=== PATIENT | male | born 1950 | race Two or more races ===

== ENCOUNTER 2017-12-23 15:02 | Emergency (ER) | payer MEDICAID ==
[~2017-12-23] VITALS: Ht 180.3 cm; Wt 68.0 kg
[2017-12-23 15:10] VITALS: BP 122/78
--- NOTE | 2017-12-23 15:31 | Emergency Room Report ---
History of Present Illness General Chief Complaint: Male Urogenital Problems Source: EMS Present Illness HPI 67-year-old male patient presents ER complaining of hematuria and dysuria 1 week. Patient denies passage of clots. Patient denies recent sexual activity. Denies flank or abdominal pain. Denies fever, chest pain, shortness of breath , abdominal pain, diarrhea. Denies testicular pain or swelling. Denies rash or lesions on penis. Denies recent trauma or injury. Denies other acute symptoms. reports history of prostate problems, denies taking medication for prostate problems, does not remember medication previous taken. Denies constipation. Allergies: Coded Allergies: No Known Allergies (Unverified , 12/23/17) Patient History Past Medical History: see triage record Reviewed Nursing Documentation: PMH: Agreed; PSxH: Agreed Nursing Documentation-PMH Past Medical History: No Stated History Review of Systems All Other Systems: negative except mentioned in HPI Physical Exam Vital Signs Date Time Temp Pulse Resp B/P (MAP) Pulse Ox O2 Delivery O2 Flow Rate FiO2 12/23/17 14:59 98.2 78 18 122/78 100 Room Air 98.2 Sp02 EP Interpretation: reviewed, normal General Appearance: well appearing, no apparent distress, alert, GCS 15, non- toxic Head: normocephalic, atraumatic Eyes: bilateral eye normal inspection, bilateral eye PERRL ENT: hearing grossly normal, normal pharynx, no angioedema, normal voice, uvula midline, moist mucus membranes Neck: full range of motion Respiratory: lungs clear, normal breath sounds, no rhonchi, no respiratory distress, no accessory muscle use, no wheezing, speaking full sentences Cardiovascular #1: regular rate, rhythm, no edema Gastrointestinal: non tender, soft, no mass, non-distended, no guarding, no rebound Genitourinary: no CVA tenderness, penis normal - uncircumcised, scrotum normal , other - crusting on glans penis with foreskin retracted, no erythema or edema , TTP, no lesions or vesicles Musculoskeletal: back normal, digits/nails normal, gait/station normal, normal range of motion, non-tender Neurologic: alert, oriented x3, responsive, motor strength/tone normal, sensory intact Psychiatric: mood/affect normal Skin: no rash Lymphatic: no adenopathy Medical Decision Making PA Attestation Dr. Pires is my supervising Physician whom patient management has been discussed with. Diagnostic Impression: Primary Impression: Hematuria Additional Impressions: Urinary tract infection Bladder diverticulum Impaired renal function ER Course Pt presents to ED c/o hematuria and dysuria. DDX considered but are not limited to cystitis, pyelonephritis, STI, renal artery aneurysm, mass, kidney stones, BPH, retention. 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 patient complains of painful hematuria, will order CT abdomen with labs. Cap refill < 2seconds, no circumoral pallor. VITAL SIGNS are WNL, patient is afebrile. ER COURSE Provided patient with IV fluids. CBC unremarkable, mild anemia noted, does not require blood transfusion at this time. CMP shows decreased eGFR, likely impaired renal function, f/u with PCP for further treatment and referral. UA results show positive nitrites and bacteria, indicate UTI, will treat with abx and discharge home with abx prescription. Provided with Rocephin in the ER. Will discharge home with Keflex. If concern for STI, followup with STI clinic for testing and treatment. Denies STI concern. advised patient to keep portion clean, wash thoroughly daily. CT abdomen pelvis shows distended urinary bladder, bladder diverticulum, atherosclerotic vascular disease, degenerative facet arthropathy and lumbar spine, hyperdensities in liver. Discuss results with the patient. Provided patient with copy of results. Instructed patient to followup with PCP and discuss results of report with patient, discuss need for further treatment and referral. Consult with TORRES Samaniego for close outpatient followup with PCP. Followup with PCP and discuss referral to urology specialist for further imaging and treatment. Provided with contact information for urology specialist. Patient blood pressure not elevated, advised patient to discuss prostate evaluation and medication at followup, will not begin patient on prostate medication at this time. Patient is resting comfortably in bed, nontoxic appearing, in no acute distress. Advised on Tylenol for pain symptoms. ER precautions given. DISCHARGE -Rx provided for Tylenol -Rx provided for Keflex Patient is stable for discharge. Patient resting comfortably, in no acute distress, nontoxic appearing, talking without difficulty. Will provide with patient care instructions and any necessary prescriptions. Patient understands and agrees to treatment plan. Patient encouraged to drink plenty of fluids. Patient to take medication as instructed. Care plan and follow-up instructions provided. Patient questions asked and answered. Reports understanding and agreement to treatment plan. Patient instructed to follow-up with primary care provider in 3 - 5 days. ER precautions given. Patient instructed to return to ER immediately for any new or worsening of symptoms. Including but not limited to fever, abdominal pain , intractable vomiting. - Please note that this Emergency Department Report was dictated using [employer] engineer technology software, occasionally this can lead to erroneous entry secondary to interpretation by the dictation equipment. Labs Test 12/23/17 16:12 12/23/17 16:53 White Blood Count 5.7 K/UL (4.8-10.8) Red Blood Count 4.24 M/UL (4.70-6.10) Hemoglobin 12.8 G/DL (14.2-18.0) Hematocrit 37.5 % (42.0-52.0) Mean Corpuscular Volume 88 FL (80-99) Mean Corpuscular Hemoglobin 30.1 PG (27.0-31.0) Mean Corpuscular Hemoglobin Concent 34.1 G/DL (32.0-36.0) Red Cell Distribution Width 13.1 % (11.6-14.8) Platelet Count 245 K/UL (150-450) Mean Platelet Volume 5.2 FL (6.5-10.1) Neutrophils (%) (Auto) 70.9 % (45.0-75.0) Lymphocytes (%) (Auto) 19.3 % (20.0-45.0) Monocytes (%) (Auto) 6.5 % (1.0-10.0) Eosinophils (%) (Auto) 2.3 % (0.0-3.0) Basophils (%) (Auto) 0.9 % (0.0-2.0) Sodium Level 147 MMOL/L (136-145) Potassium Level 3.8 MMOL/L (3.5-5.1) Chloride Level 110 MMOL/L (98-107) Carbon Dioxide Level 32 MMOL/L (21-32) Anion Gap 5 mmol/L (5-15) Blood Urea Nitrogen 19 mg/dL (7-18) Creatinine 1.3 MG/DL (0.55-1.30) Estimat Glomerular Filtration Rate 55.2 mL/min (>60) Glucose Level 91 MG/DL (74-106) Calcium Level 8.4 MG/DL (8.5-10.1) Total Bilirubin 0.2 MG/DL (0.2-1.0) Aspartate Amino Transf (AST/SGOT) 21 U/L (15-37) Alanine Aminotransferase (ALT/SGPT) 29 U/L (12-78) Alkaline Phosphatase 59 U/L (46-116) Total Protein 6.2 G/DL (6.4-8.2) Albumin 2.9 G/DL (3.4-5.0) Globulin 3.3 g/dL Albumin/Globulin Ratio 0.9 (1.0-2.7) Lipase 159 U/L (73-393) Urine Color Red Urine Appearance Cloudy Urine pH 8 (4.5-8.0) Urine Specific [place] 1.010 (1.005-1.035) Urine Protein 3+ (NEGATIVE) Urine Glucose (UA) Negative (NEGATIVE) Urine Ketones Negative (NEGATIVE) Urine Blood 5+ (NEGATIVE) Urine Nitrite Positive (NEGATIVE) Urine Bilirubin Negative (NEGATIVE) Urine Urobilinogen Normal MG/DL (0.0-1.0) Urine Leukocyte Esterase 2+ (NEGATIVE) Urine RBC Tntc /HPF (0 - 0) Urine WBC 5-10 /HPF (0 - 0) Urine Squamous Epithelial Cells None /LPF (NONE/OCC) Urine Bacteria Many /HPF (NONE) CT/MRI/US Diagnostic Results CT/MRI/US Diagnostic Results : Imaging Test Ordered: CT abdomen pelvis Impression No nephrolithiasis or obstructive nephropathy. Poor visualization of the ureters due to lack of abdominal fat. Suggestion of a 2.3 x 1.2 cm cyst in the left kidney. Suggestion of a 1 cm hyperdense cyst in the left kidney. Distended urinary bladder. Consider Welch catheter. Prominent posterior bladder diverticulum. Mild atherosclerotic vascular disease Hypodensities in the liver nonspecific. These may be cystic. Mild degenerative facet arthropathy lower lumbar spine. Last Vital Signs Date Time Temp Pulse Resp B/P (MAP) Pulse Ox O2 Delivery O2 Flow Rate FiO2 12/23/17 14:59 98.2 78 18 122/78 100 Room Air 98.2 Disposition: HOME, SELF-CARE Condition: Stable Scripts Acetaminophen* (TYLENOL EXTRA STRENGTH*) 500 Mg Tablet 500 MG ORAL Q8H PRN for Prn Headache/Temp > 101, #30 TAB 0 Refills Prov: Jamey Sampson 12/23/17 Cephalexin* (KEFLEX*) 500 Mg Capsule 500 MG ORAL EVERY 12 HOURS, #14 CAP 0 Refills Prov: Jamey Sampson 12/23/17 Patient Instructions: Acute Kidney Injury, Hematuria, Adult, Urinary Tract Infection Additional Instructions: Followup with primary care provider in 3 -5 days. Discuss referral to specialist for cystography and other follow-up as needed. Take medications as directed. Patient questions asked and answered. ER precautions given, patient instructed to return to ER immediately for any new or worsening of symptoms. Jamey Sampson Dec 23, 2017 15:31
--- NOTE | 2017-12-23 16:11 | Diagnostic Imaging Report ---
Indication: Abdominal pain. Hematuria and dysuria Technique: Continuous helical transaxial imaging of the abdomen and pelvis was obtained from the lung bases to the pubic symphysis. No intravenous contrast was administered. Coronal 2-D reformats were also obtained. Automatic Exposure Control was utilized. Total Dose length Product (DLP): 534.[address] Dose Index Volume (CTDIvol): 10.89 mGy Comparison: none Findings: Lung bases are essentially clear. There is no nephrolithiasis identified. In the central part of the left kidney in the lower pole there is a hypodensity present measuring about 2.3 x 1.2 cm. This may be a cyst. Also in the lower pole there is a 1 cm hyperdensity. This is also probably a cyst either with internal hemorrhage or protein. Due to the relative paucity of intra-abdominal fat and the ureters are not seen. Having said that, there is no dilatation of the renal pelvis or the calyces to suggest hydronephrosis. The urinary bladder is moderately distended. There is a outpouching of the posterior wall of the urinary bladder measuring approximately 3 cm. Bowel gas pattern is nonspecific. There are gallstones within a contracted gallbladder. Mild aortoiliac calcifications are present. The appendix is not visualized. There is a 3 cm cyst in the right lobe of the liver. There are other smaller hypodensities in the liver, nonspecific but probably cystic. There is hypertrophy and sclerosis of the lower lumbar facets. Mild osteophytes involving the sacroiliac joints noted bilaterally. IMPRESSION: No nephrolithiasis or obstructive nephropathy. Poor visualization of the ureters due to lack of abdominal fat. Suggestion of a 2.3 x 1.2 cm cyst in the left kidney. Suggestion of a 1 cm hyperdense cyst in the left kidney. Distended urinary bladder. Consider Welch catheter. Prominent posterior bladder diverticulum. Mild atherosclerotic vascular disease Hypodensities in the liver nonspecific. These may be cystic. Mild degenerative facet arthropathy lower lumbar spine. The study is significantly limited in evaluation because of the nonadministration of intravenous and oral contrast which is particularly limiting in this case because of the relative absence of abdominal fat. The CT scanner at [facility] is accredited by the [employer] and the scans are performed using dose optimization techniques as appropriate to a performed exam including Automatic Exposure control.
[2017-12-23 16:24] LABS: BASOPHILS % (AUTO) 0.9 % (0.0-2.0); EOSINOPHILS % (AUTO) 2.3 % (0.0-3.0); HEMATOCRIT 37.5 % (42.0-52.0); HEMOGLOBIN 12.8 G/DL (14.2-18.0); LYMPHOCYTES % (AUTO) 19.3 % (20.0-45.0); MEAN CORPUSCULAR VOLUME 88 FL (80-99); MONOCYTES % (AUTO) 6.5 % (1.0-10.0); NEUTROPHILS % (AUTO) 70.9 % (45.0-75.0); PLATELET COUNT 245 K/UL (150-450); RED BLOOD COUNT 4.24 M/UL (4.70-6.10); RED CELL DISTRIBUTION WIDTH 13.1 % (11.6-14.8); WHITE BLOOD COUNT 5.7 K/UL (4.8-10.8)
[2017-12-23 16:38] LABS: ALANINE AMINOTRANSFERASE 29 U/L (12-78); ALBUMIN 2.9 G/DL (3.4-5.0); ALBUMIN/GLOBULIN RATIO 0.9 (1.0-2.7); ALKALINE PHOSPHATASE 59 U/L (46-116); ANION GAP 5 mmol/L (5-15); ASPARTATE AMINO TRANSFERASE 21 U/L (15-37); BILIRUBIN,TOTAL 0.2 MG/DL (0.2-1.0); BLOOD UREA NITROGEN 19 mg/dL (7-18); CALCIUM 8.4 MG/DL (8.5-10.1); CARBON DIOXIDE 32 MMOL/L (21-32); CHLORIDE 110 MMOL/L (98-107); CREATININE 1.3 MG/DL (0.55-1.30); POTASSIUM 3.8 MMOL/L (3.5-5.1); SODIUM 147 MMOL/L (136-145)
[2017-12-23] MEDS ORDERED: cefTRIAXone 1 GM in NS 55 ML IVPB ONE (17:00)
[2017-12-23 17:09] LABS: BILIRUBIN, URINE NEGATIVE (NEGATIVE); COLOR,URINE RED; GLUCOSE, URINE (UA) NEGATIVE (NEGATIVE); KETONES,URINE NEGATIVE (NEGATIVE); LEUKOCYTE ESTERASE ,URINE 2+ (NEGATIVE); NITRITE,URINE POSITIVE (NEGATIVE); PH,URINE 8 (4.5-8.0); PROTEIN,URINE 3+ (NEGATIVE); UROBILINOGEN,URINE NORMAL MG/DL (0.0-1.0)
[2017-12-23 17:11] LABS: APPEARANCE,URINE CLOUDY
[2017-12-23] MEDS ORDERED: CEPHALEXIN500 MG ORAL (17:50)
[2017-12-23] MEDS ORDERED: TYLENOL EXTRA500 MG ORAL (17:50)
[2017-12-23 19:08] VITALS: BP 111/70
== END 2017-12-23 19:12 | disposition home or self-care (01) ==
LOC: EDBD 15:02 → EMR 16:57
DX: N39.0 Urinary tract infection, site not specified (principal); N32.3 Diverticulum of bladder; N28.9 Disorder of kidney and ureter, unspecified
CPT/HCPCS: 36415; 74176; 80053; 81003; 83690; 85025; 87086; 96361; 96365; 99284; J0696